=== PATIENT | male | born 2000 | race Two or more races ===

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

== ENCOUNTER → 2020-01-12 | Outpatient (CLI) | payer OTHER, SELFPAY | LOC: M LABSMTC 11:13 | PROVIDERS: ATTEND Family Medicine | DX: Z20.828 Contact with and (suspected) exposure to other viral communicable diseases (principal) | CPT/HCPCS: C9803; U0003 ==

== ENCOUNTER → 2020-05-18 | Outpatient (CLI) | payer SELFPAY | LOC: EDBD 11:10 → M LABSMTC 11:10 | PROVIDERS: ATTEND Pediatrics | DX: Z20.828 Contact with and (suspected) exposure to other viral communicable diseases (principal) ==

== ENCOUNTER 2021-06-29 22:00 | Emergency (ER) | payer SELFPAY ==
[~2021-06-29] VITALS: Ht 175.3 cm; Wt 65.6 kg
[~2021-06-29 22:00] MED LIST: NAPR-837 PO
[2021-06-29] MEDS ORDERED: GABA-1171 PO (22:12)
[2021-06-29] MEDS ORDERED: NAPR-885 PO (22:12)
[2021-06-29 22:13] VITALS: BP 134/68
== END 2021-06-30 01:17 | disposition left against medical advice (07) ==
LOC: M ED 22:00
DX: Z53.29 Procedure and treatment not carried out because of patient's decision for other reasons (principal)